=== PATIENT | male | born 1980 | race Native Hawaiian/Other Pacific Islander ===

== ENCOUNTER 2022-02-06 12:27 | Emergency (ER) | payer SELFPAY ==
[~2022-02-06] VITALS: Ht 167.6 cm; Wt 83.9 kg
[2022-02-06 12:36] VITALS: BP 132/71
--- NOTE | 2022-02-06 13:30 | NUR ---
PATIENT LEFT WITHOUT BEING SEEN BY . NO FURTHER CARE PROVIDED FOR PATIENT.
--- NOTE | 2022-02-06 13:30 | NUR ---
CALLED BY [employer], NO ANSWER
--- NOTE | 2022-02-06 13:45 | NUR ---
CALLED BY [employer] FOR 2ND TIME, NO ANSWER
--- NOTE | 2022-02-06 16:25 | NUR ---
PT CALLED BY [employer], NO ANSWER
== END 2022-02-06 13:30 | disposition left against medical advice (07) ==
LOC: MED 12:27
DX: M25.511 Pain in right shoulder (principal); Z53.21 Procedure and treatment not carried out due to patient leaving prior to being seen by health care provider; W19.XXXA Unspecified fall, initial encounter; Y93.66 Activity, soccer; Y92.89 Other specified places as the place of occurrence of the external cause; Y99.8 Other external cause status